=== PATIENT | female | born 1980 | race Caucasian/White ===

== ENCOUNTER 2022-05-21 18:58 | Emergency (ER) | payer OTHER, SELFPAY ==
[2022-05-21 19:02] VITALS: BP 92/65; PULSE 94; RESP 14; TEMP 37.5; O2SAT 98
--- NOTE | 2022-05-21 19:14 | ED.URI ---
HPI - URI/Sore Throat General Chief Complaint: Upper Respiratory Infection Stated Complaint: Fever/Dizziness Time Seen by Provider: 05/21/22 19:00 Source: patient and RN notes reviewed History of Present Illness HPI Narrative: Patient is a 42-year-old female who presents to urgent care with complaints of cough, fatigue, sore throat, dizziness and headache. Patient states that she had to leave work today due to her symptoms and went home and slept. Patient states that she ?took a pain medication today?. Otherwise denies any other [id number] medication for symptom relief. Denies any known fever or ill exposures. No other acute complaints. No acute distress noted. Patient aware of the plan of care. Some parts of this dictation were generated by voice recognition software and may contain typographical and/or grammatical inaccuracies. Related Data Home Medications Medication Instructions Recorded Confirmed No Home Medications 05/21/22 05/21/22 Allergies Allergy/AdvReac Type Severity Reaction Status Date / Time No Known Allergies Allergy Verified 05/21/22 19:15 Review of Systems Review of Systems: CONSTITUTIONAL: Denies fever, chills, or sweats. Reports of fatigue EYES: Denies visual changes, redness, or discharge. ENT: Denies rhinorrhea, congestion, otalgia. Reports of sore throat CARDIOVASCULAR: Denies chest pain, palpitations, or edema. RESPIRATORY: Reports of cough without dyspnea GASTROINTESTINAL: Denies abdominal pain, nausea, vomiting, or diarrhea. GENITOURINARY: Denies dysuria or hematuria. SKIN: Denies rash or itching. MUSCULOSKELETAL: Denies back pain, joint pain, or myalgia. NEUROLOGIC: Reports of headache and dizziness All other systems reviewed are negative, except as documented in HPI. PMFSH Comments At the time of my signature, I reviewed and agree with the nursing past medical, surgical, social, and family history. There is no relevant family history pertinent to the patient complaint. Exam Narrative: GENERAL: This is a well-nourished, well-developed patient, in no apparent distress. HEAD: normocephalic, atraumatic. EYES: PERRL. Sclera clear/white. Vision is grossly intact. EARS: External ears normal, auditory canals clear and without drainage, TMs normal without perforation. Hearing grossly intact. NOSE: External nose normal with no obvious nasal discharge, nares without redness, no rhinorrhea. THROAT: Mucous membranes moist, posterior pharynx clear. NECK: Neck supple, non-tender without lymphadenopathy, masses or thyromegaly. CARDIOVASCULAR: Regular rate and rhythm without murmurs, gallops, or rubs. RESPIRATORY: Clear to auscultation. Breath sounds equal bilaterally. No wheezes, rales, or rhonchi. GASTROINTESTINAL: Abdomen soft, non-tender, nondistended. Bowel sounds are active. No hepato-splenomegaly, or palpable masses. No guarding. SKIN: warm, intact with no suspicious lesions or rash, good texture and turgor. NEURO: awake, alert, and oriented to person, place and time. There were no obvious focal neurologic abnormalities. EXTREMITIES: No clubbing, cyanosis, or edema. No joint tenderness, effusion, or edema noted. No calf tenderness. Negative Homans sign bilaterally. BACK: Nontender without deformity or crepitance. No flank tenderness. Course Course Level of Care: Express Care Visit Vital Signs Vital signs: Vital Signs Temperature 99.5 F 05/21/22 19:02 Pulse Rate 94 05/21/22 19:02 Respiratory Rate 14 05/21/22 19:02 Blood Pressure 92/65 L 05/21/22 19:02 Pulse Oximetry 98 05/21/22 19:02 Oxygen Delivery Room Air 05/21/22 19:02 Temperature 99.5 F 05/21/22 19:02 Pulse Rate 94 05/21/22 19:02 Respiratory Rate 14 05/21/22 19:02 Blood Pressure 92/65 L 05/21/22 19:02 Pulse Oximetry 98 05/21/22 19:02 Oxygen Delivery Room Air 05/21/22 19:02 Reviewed MDM - URI/Sore Throat MDM Narrative Medical decision making narrative: Reviewed lab results w
== END 2022-05-21 19:30 | disposition home or self-care (01) ==
PROVIDERS: Emergency Provider Nurse Practitioner Family; PCP Family Medicine
DX: B34.9 Viral infection, unspecified (principal)
CPT/HCPCS: 87081; 87880; 99203; G0463